=== PATIENT | male | born 1980 | race African-American/Black ===

== ENCOUNTER 2016-05-25 14:36 | Emergency (ER) | payer OTHER | END 2016-05-25 15:25 | disposition home or self-care (01) | LOC: FER 14:36 | DX: M77.52 Other enthesopathy of left foot and ankle (principal); I10 Essential (primary) hypertension; Z88.0 Allergy status to penicillin; Z79.899 Other long term (current) drug therapy | CPT/HCPCS: 73630; 99283 ==